=== PATIENT | female | born 1975 | race African-American/Black ===

== ENCOUNTER 2021-04-10 15:59 | Emergency (ER) | payer MEDICAID ==
[~2021-04-10] VITALS: Ht 177.8 cm; Wt 73.0 kg
[2021-04-10] MEDS ORDERED: CEPH500C2 MT (16:29)
[2021-04-10] MEDS ORDERED: SULF1TAB48 MT (16:29)
[2021-04-10 16:44] VITALS: BP 141/67
== END 2021-04-10 16:52 | disposition home or self-care (01) ==
LOC: ER 15:59
DX: L05.91 Pilonidal cyst without abscess (principal); Z98.890 Other specified postprocedural states
CPT/HCPCS: 81025; 99283

== ENCOUNTER 2022-03-12 01:06 | Emergency (ER) | payer MEDICAID ==
[~2022-03-12] VITALS: Ht 177.8 cm; Wt 82.0 kg
[~2022-03-12 01:06] MED LIST: CEPH500C2 MT; SULF1TAB48 MT
[2022-03-12 01:26] VITALS: BP 103/76
[2022-03-12] MEDS ORDERED: IBUP-2029 MT (02:59)
[2022-03-12] MEDS ORDERED: CEPH500C2 MT (02:59)
[2022-03-12] MEDS ORDERED: SULF1TAB48 MT (02:59)
== END 2022-03-12 03:14 | disposition home or self-care (01) ==
LOC: ER 01:06
DX: L02.31 Cutaneous abscess of buttock (principal); Z98.890 Other specified postprocedural states; Z98.51 Tubal ligation status
CPT/HCPCS: 99283

== ENCOUNTER 2022-08-22 10:35 | Emergency (ER) | payer MEDICAID ==
[~2022-08-22] VITALS: Ht 175.3 cm; Wt 83.0 kg
[~2022-08-22 10:35] MED LIST changes: +IBUP-2029 MT
[2022-08-22 10:41] VITALS: BP 143/96
[2022-08-22] MEDS ORDERED: VISCOUS LIDOCAINE 2% 15 ML UDC PO STA (11:24)
[2022-08-22] MEDS ORDERED: IBUPROFEN 600MG TABLET PO STA (11:24)
[2022-08-22] MEDS ORDERED: MAGNESIUM/ALUMINUM HYDROXIDE/SIMETHICONE 30ML UDC PO STA (11:24)
[2022-08-22] MEDS ORDERED: DICYCLOMINE 10 MG/5 ML ORAL SYR PO STA (11:24)
[2022-08-22 12:21] LABS: BASOPHILS % 0.6 % (0.0-2.0); EOSINOPHILS % 2.2 % (0.0-5.0); HEMATOCRIT. 38.1 % (36.0-48.0); LYMPHOCYTES % 32.9 % (20.0-50.0); MEAN CORPUSCULAR HEMOGLOBIN 31.7 pg (28.0-32.0); MEAN CORPUSCULAR VOLUME 92.6 fL (81.0-99.0); MEAN PLATELET VOLUME 7.8 fl (7.4-10.4); MONOCYTES % 11.2 % (2.0-8.0); NEUTROPHILS % 53.1 % (40.0-76.0); PLATELET 259 x1000/uL (130-400); RED BLOOD CELL COUNT 4.12 mill/uL (4.2-5.4); RED CELL DISTRIBUTION WIDTH 12.6 % (11.6-14.6)
[2022-08-22 12:21] LABS: CLARITY URINE CLEAR (CLEAR); COLOR URINE YELLOW (YELLOW); KETONES URINE NEGATIVE (NEGATIVE); LEUKOCYTE ESTERASE URINE NEGATIVE (NEGATIVE); NITRITE URINE NEGATIVE (NEGATIVE); OCCULT BLOOD URINE NEGATIVE (NEGATIVE); PROTEIN URINE NEGATIVE (NEGATIVE); SPECIFIC GRAVITY URINE 1.008 (1.005-1.030); UROBILINOGEN URINE 0.2 E.U./dL (0.2-1.0)
[2022-08-22] MEDS ORDERED: IBUPROFEN 600MG TABLET PO ONE (12:30)
[2022-08-22 12:34] LABS: CHLORIDE 106 mEq/L (98-107)
[2022-08-22] MEDS ORDERED: TOPUD MT (12:51)
[2022-08-22] MEDS ORDERED: FAMO-135 MT (12:51)
== END 2022-08-22 12:58 | disposition home or self-care (01) ==
LOC: EDBD 10:35 → ER 12:01
DX: S39.012A Strain of muscle, fascia and tendon of lower back, initial encounter (principal); K29.70 Gastritis, unspecified, without bleeding; Z98.890 Other specified postprocedural states; Z98.51 Tubal ligation status; X58.XXXA Exposure to other specified factors, initial encounter; Y93.89 Activity, other specified; Y92.018 Other place in single-family (private) house as the place of occurrence of the external cause
CPT/HCPCS: 36415; 80053; 81003; 81025; 85025; 99284

== ENCOUNTER 2023-11-12 02:44 | Emergency (ER) | payer MEDICAID ==
[~2023-11-12] VITALS: Ht 175.3 cm; Wt 79.0 kg
[~2023-11-12 02:44] MED LIST changes: +FAMO-135 MT; +TOPUD MT
[2023-11-12 03:00] VITALS: O2SAT 100
[2023-11-12 03:22] LABS: CLARITY URINE CLEAR (CLEAR); COLOR URINE YELLOW (YELLOW); GLUCOSE URINE NEGATIVE (NEGATIVE); KETONES URINE NEGATIVE (NEGATIVE); LEUKOCYTE ESTERASE URINE NEGATIVE (NEGATIVE); NITRITE URINE NEGATIVE (NEGATIVE); OCCULT BLOOD URINE NEGATIVE (NEGATIVE); PROTEIN URINE NEGATIVE (NEGATIVE); SPECIFIC GRAVITY URINE 1.018 (1.005-1.030)
[2023-11-12] MEDS ORDERED: IBUP-2028 PO (05:47)
[2023-11-12] MEDS ORDERED: ACET-2708 PO (05:47)
[2023-11-12] MEDS: DEXAMETHASONE 10 MG/ML VIAL IM ONE (05:57)
[2023-11-12] MEDS: KETOROLAC 60MG/2ML VIAL IM ONE (05:58)
[2023-11-12 06:23] VITALS: BP 141/75; PULSE 60; RESP 15; TEMP 97.7
== END 2023-11-12 06:41 | disposition home or self-care (01) ==
LOC: ER 02:44
DX: M54.9 Dorsalgia, unspecified (principal); Z98.890 Other specified postprocedural states; Z98.51 Tubal ligation status
CPT/HCPCS: 99284; 81003; 81025; 96372; J1100; J1885

== ENCOUNTER 2024-10-05 15:39 | Emergency (ER) | payer MEDICAID ==
[~2024-10-05] VITALS: Ht 177.8 cm; Wt 78.0 kg
[~2024-10-05 15:39] MED LIST changes: +ACET-2708 PO; +IBUP-2028 PO
[2024-10-05 15:47] VITALS: O2SAT 98
[2024-10-05] MEDS: CYCLOBENZAPRINE 10MG TABLET PO ONE (18:00)
[2024-10-05] MEDS: KETOROLAC 15MG/ML VIAL IM ONE (18:00)
[2024-10-05] MEDS ORDERED: CYCL10TA21 MT (20:28)
[2024-10-05] MEDS ORDERED: NAPR-681 MT (20:28)
[2024-10-05 20:50] VITALS: BP 128/62; PULSE 77; RESP 16; TEMP 36.9; O2SAT 99
== END 2024-10-05 20:50 | disposition home or self-care (01) ==
LOC: ER 15:39
DX: M79.18 Myalgia, other site (principal); F19.90 Other psychoactive substance use, unspecified, uncomplicated; Z98.51 Tubal ligation status; Z79.899 Other long term (current) drug therapy
CPT/HCPCS: 99285; 70450; 71045; 81025; 72100; 73130; 72125; 96372; J1885